=== PATIENT | male | born 1970 | race Caucasian/White ===

== ENCOUNTER 2024-06-12 14:20 | Day surgery (SDC) | payer BC ==
[2024-06-12] MEDS ORDERED: Depo-Medrol 40 MG/ML IM ONE (14:21)
[2024-06-12] MEDS ORDERED: BUPIVACAINE 0.5% VIAL IJ ONE (14:21)
[2024-06-12] MEDS ORDERED: propofoL IV ONE (16:40)
--- NOTE | 2024-06-12 18:19 | XRAY ---
13 seconds of fluoroscopy were used in surgery for a left intra-articular hip injection and a left greater trochanteric bursa injection.
--- NOTE | 2024-06-13 10:50 | XRAY ---
13 seconds of fluoroscopy were used in surgery for a left intra-articular hip injection and a left greater trochanteric bursa injection.
== END 2024-06-12 17:06 | disposition home or self-care (01) ==
LOC: SDC-PAIN 14:20
PROVIDERS: ATTEND Psychiatry & Neurology Pain Medicine
DX: M16.12 Unilateral primary osteoarthritis, left hip (principal); E11.9 Type 2 diabetes mellitus without complications
CPT/HCPCS: 20610; 73502; 77002; 82947; J2704; Q9966

== ENCOUNTER 2025-04-10 07:38 | Day surgery (SDC) | payer BC ==
[2025-04-10] MEDS ORDERED: BUPIVACAINE 0.5% VIAL IJ ONE (07:39)
[2025-04-10] MEDS ORDERED: methylPREDNISolone acetate IM ONE (07:39)
[2025-04-10] MEDS ORDERED: propofoL IV ONE (09:30)
[2025-04-10] MEDS ORDERED: Lactated Ringers 1,000 ML IV ONE (09:48)
--- NOTE | 2025-04-10 10:49 | XRAY ---
Indication: Left hip and greater trochanter bursa injection. Intraoperative fluoroscopy provided for 15 seconds. 2 digital spot image submitted for interpretation demonstrates needle tip projecting lateral to left femur neck. 2nd needle tip lateral to greater trochanter. Small amount of contrast injected for needle tip placement. Correlate with intraoperative findings/report.
--- NOTE | 2025-04-10 10:51 | XRAY ---
15 seconds of fluoroscopy was used in surgery for a left hip intra-articular and greater trochanteric bursa injections.
== END 2025-04-10 10:00 | disposition home or self-care (01) ==
LOC: SDC-PAIN 07:38
PROVIDERS: ATTEND Psychiatry & Neurology Pain Medicine
DX: M16.12 Unilateral primary osteoarthritis, left hip (principal); E11.9 Type 2 diabetes mellitus without complications